=== PATIENT | female | born 1970 | race Caucasian/White ===

== ENCOUNTER 2017-07-22 11:30 | Inpatient (IN) | payer OTHER ==
[~2017-07-22] VITALS: Ht 160 cm; Wt 86.2 kg
[2017-07-22] MEDS ORDERED: LISINOPRIL20 MG PO (13:05)
[2017-07-22] MEDS ORDERED: SYNTHROID112 MCG PO (13:05)
[2017-08-04] MEDS ORDERED: CODE1TAB37 PO (14:33)
== END 2017-08-04 15:07 | disposition home or self-care (01) | DRG 743 ==
LOC: O/R 08-01 05:50 → SURG 08-01 05:50 → OB/GYN 08-01 07:00 → SURG 08-01 12:01 → SURH 08-03 17:02
PROVIDERS: Obstetrics & Gynecology
PROC: 0TJB8ZZ Inspection of Bladder, Via Natural or Artificial Opening Endoscopic (ICD-10-PCS; 2017-08-01)
PROC: 0UT90ZZ Resection of Uterus, Open Approach (ICD-10-PCS; principal; 2017-08-01 07:00)
PROC: 0UT70ZZ Resection of Bilateral Fallopian Tubes, Open Approach (ICD-10-PCS; 2017-08-01 07:00)
DX: D25.1 Intramural leiomyoma of uterus (principal); N81.11 Cystocele, midline; N94.5 Secondary dysmenorrhea; N92.0 Excessive and frequent menstruation with regular cycle; I10 Essential (primary) hypertension; E03.8 Other specified hypothyroidism